=== PATIENT | female | born 1980 | race Caucasian/White ===

== ENCOUNTER → 2020-03-16 | Outpatient (CLI) | payer SELFPAY | LOC: LAB 17:52 → LAB SHORT 17:52 | DX: R30.0 Dysuria (principal) | CPT/HCPCS: 87086 ==

== ENCOUNTER 2022-09-06 13:07 | Emergency (ER) | payer OTHER ==
[~2022-09-06] VITALS: Ht 160 cm; Wt 81.7 kg
[2022-09-06 13:22] VITALS: BP 139/91
[2022-09-06] MEDS ORDERED: PENVK500 PO (14:03)
== END 2022-09-06 14:38 | disposition home or self-care (01) ==
LOC: ER 13:07
DX: J02.9 Acute pharyngitis, unspecified (principal)
CPT/HCPCS: 87081; 87430; 99282; A9270; J1100